=== PATIENT | male | born 1970 | race Caucasian/White ===

== ENCOUNTER 2016-10-26 19:39 | Emergency (ER) | payer OTHER ==
[~2016-10-26 19:39] MED LIST: ASA CHILDREN'S81 MG PO; ASPIRIN EC81 MG PO; AVAPRO DPS150 MG PO; HYDROCODONE 5MG/5 MG PO; LASIX DPS20 MG PO; LIPITOR DPS40 MG PO; LOVENOX DP100 MG/1 M SQ; LOVENOX DP30 MG/0.3 SQ; MICRO-K DPS10 MEQ PO; PAMELOR DPS10 MG PO; PAMELOR DPS25 MG PO; PLAVIX75 MG PO; RELAFEN DPS750 MG PO; TOPROL XL DPS25 MG PO; TYLENOL DPS325 MG PO; VITAMIN B-12500 MCG PO; XARELTO20 MG PO; ZANAFLEX4 MG PO
--- NOTE | 2016-10-28 08:06 | CO ---
ADMIT: 10/26/2016 RM/LOC: ER [facility] MR#: [id number] [address] DREW BERNAL Justin [address] [place] [address] Consultation SEX: M AGE: 46 : 1970 DATE OF CONSULTATION: 10/26/2016 ATTENDING PHYSICIAN: Mati Chin MD CONSULTING PHYSICIAN: Catherine Burnett MD HISTORY: This patient is a 46-year-old man who comes in with a history of foreign body sensation on Thursday after he passed in front of a fan and thought maybe a foreign body had gotten into the left eye. He called his hose builder, Dr. Escobedo, who was not in the office, but her office apparently scheduled an appointment with me. However, he felt better, so he canceled it on . Unfortunately, his eye started to become more painful and red today with a foreign body sensation, and he noticed some decreased vision. His past ocular history is significant for a history of what sounds to be a corneal ulcer, he is not sure which eye, but he had these frequent antibiotics in between every day. PAST MEDICAL HISTORY: Significant for pulmonary embolus and pacemaker. MEDICATIONS: He is on: 1. Potassium. 2. Tizanidine. 3. Atorvastatin. 4. Xarelto. 5. Lasix. 6. Losartan. 7. Metoprolol. ALLERGIES: TO PENICILLIN. REVIEW OF SYSTEMS: Negative except as mentioned above. PAST OCULAR HISTORY: Significant for the ulcer a year ago. PHYSICAL EXAMINATION: Examination was done by the ER staff and without correction is 20/25 in the right eye, 20/40 in the left eye. Pupils are 4 mm, 2+ reaction to light. No afferent pupillary defect. External examination is normal. There is no foreign body with lid eversion in either eye. The ADMIT: 10/26/2016 RM/LOC: [facility] MR#: [id number] [address] DREW BERNAL [address] [place] [address] Consultation SEX: M AGE: 46 : 1970 slitlamp examination shows a clear conjunctiva on the right, 1+ injection on the left. The cornea on the right is clear. The left cornea has a 1 mm corneal ulcer with about 1 mm of overlying stain with a haze superior to it. The anterior chamber is deep and quiet in both eyes. Iris is normal and the lens is clear in both eyes. The pressures by applanation are 15 and 20. IMPRESSION: Corneal ulcer OS, which is less than 1 mm and does not involve the visual axis, is marginal. PLAN: Vigamox one drop in the left eye q.15 minutes x4, then q.30 x4, then q.hour around the clock. The patient is to return tomorrow. I also did a drop of Cyclogyl to dilate the pupil and sent him home. Catherine Burnett MD/ vania JOB #: [id number] CC: Mati Chin MD, Attending Physician Genet Paz APRN, Family Physician
--- NOTE | 2016-11-06 19:38 | ER ---
ADMIT: 10/26/2016 RM/LOC: ER [facility] MR#: [id number] [address] DREW BERNAL Justin [address] [place] [address] Emergency Room Report SEX: M AGE: 46 : 1970 DATE: 10/26/2016 CHIEF COMPLAINT: Left eye pain. HISTORY OF PRESENT ILLNESS: The patient is a 46-year-old gentleman who presents to the ER complaining of several days of left eye pain. He thinks it is possible he might have got some sawdust in his eye 5 days ago, felt like he had a foreign body sensation at that time, but then he got better. He did have an appointment to see Dr. Burnett, but since he got better, he cancelled that appointment. Since the appointment was canceled, it has gotten worse in the past couple of days. He states he has photophobia and some occasional blurry vision with pain and foreign body sensation in his left eye. PAST MEDICAL HISTORY: History of blood clots which he takes Xarelto and also has a pacemaker. High cholesterol and high blood pressure. MEDICATIONS: See nurse's note. ALLERGIES: PENICILLIN. SOCIAL HISTORY: Denies smoking, drug use. Does use alcohol socially. PHYSICAL EXAMINATION: VITAL SIGNS: Blood pressure 93/54, pulse 68. The patient is afebrile. HEENT: Visual acuity is 20/25 right eye, 20/40 left eye, 20/20 both eyes. Head is atraumatic. Pupils are equal, round, reactive to light. Extraocular muscles are intact. Examination of the patient's left eye shows it is injected slightly. I did use proparacaine and anesthetized the eye and used fluorescein drops which did not have any uptake of fluorescein. Examination shows an area at the 9 o'clock position where there is a very small area of cloudiness on the cornea. ADMIT: 10/26/2016 RM/LOC: ER [facility] MR#: [id number] [address] DREW BERNAL [address] [place] [address] Emergency Room Report SEX: M AGE: 46 : 1970 EMERGENCY DEPARTMENT COURSE: Dr. Burnett was consulted on this patient as he has apparently had an ulcer in the past. I am concerned he has recurrence of his ulcer. She did evaluate the patient in the ER and final disposition is by Dr. Burnett. She did want the patient have Vigamox and that was ordered in the ER as the pharmacies are closed in town. He was given specific instructions on how to use the Vigamox and things to look out for by Dr. Burnett, and he is to follow up with her in clinic. DIAGNOSIS: Corneal ulcer, left eye. DISPOSITION: The patient is discharged home in stable condition. Follow up with Dr. Burnett. Remington Kwan MD/ vania JOB #: [id number] CC: Mati Chin MD, Attending Physician Genet Paz APRN, Family Physician
== END 2016-10-26 20:57 | disposition home or self-care (01) ==
LOC: ER 19:39
DX: H01.8 Other specified inflammations of eyelid (principal); Z88.1 Allergy status to other antibiotic agents